=== PATIENT | male | born 1975 | race African-American/Black ===

== ENCOUNTER 2017-02-05 12:40 | Emergency (ER) | payer BC ==
[2017-02-05 12:47] VITALS: BP 133/89
--- NOTE | 2017-02-10 10:58 | ER Document Report ---
ED General - General Chief Complaint: Headache Stated Complaint: POSSIBLE BLOOD PRESSURE ISSUE Time Seen by Provider: 02/05/17 12:55 Mode of Arrival: Ambulatory Information source: Patient TRAVEL OUTSIDE OF THE [place] IN LAST 30 DAYS: No - HPI Patient complains to provider of: BP issue Onset: This morning - pt. states he checked his BP ealrier today and it was "elevated." Has had mild MANNING for the past 2 days - Related Data Allergies/Adverse Reactions: No Known Allergies Allergy (Verified 02/05/17 12:46) Past Medical History - General Information source: Patient - Social History Smoking Status: Never Smoker Cigarette use (# per day): No Chew tobacco use (# tins/day): No Smoking Education Provided: No Family History: Reviewed & Not Pertinent, Hypertension - Past Medical History Cardiac Medical History: Reports: Hx Hypertension Renal/ Medical History: Denies: Hx Peritoneal Dialysis - Immunizations Hx Diphtheria, Pertussis, Tetanus Vaccination: No Review of Systems - Review of Systems Constitutional: No symptoms reported EENT: No symptoms reported Cardiovascular: No symptoms reported Respiratory: No symptoms reported Gastrointestinal: No symptoms reported Musculoskeletal: No symptoms reported -: Yes All other systems reviewed and negative Physical Exam - Vital signs Vitals: Temp Pulse Resp BP Pulse Ox 98.1 F 77 16 133/89 H 98 02/05/17 12:46 02/05/17 12:46 02/05/17 12:46 02/05/17 12:46 02/05/17 12:46 - General General appearance: Appears well In distress: None - HEENT Head: Normocephalic Eyes: Normal Pupils: PERRL Pharynx: Normal Neck: Normal - Respiratory Respiratory status: No respiratory distress Breath sounds: Normal - Cardiovascular Rhythm: Regular Heart sounds: Normal auscultation - Extremities General upper extremity: Normal inspection General lower extremity: Normal inspection Course - Re-evaluation Re-evalutation: 02/10/17 10:57 pt felt better at time of d/c -- BP 133/89- expressed desire to go home - Vital Signs Vital signs: Temp Pulse Resp BP Pulse Ox 98.1 F 77 16 133/89 H 98 02/05/17 12:46 02/05/17 12:46 02/05/17 12:46 02/05/17 12:46 02/05/17 12:46 Discharge - Discharge Clinical Impression: HTN (hypertension), benign Condition: Stable Disposition: HOME, SELF-CARE Additional Instructions: rest, BP recheck in am, return if worse Referrals: FELICE VALLE DO [NO LOCAL MD] - Follow up as needed
== END 2017-02-05 13:10 | disposition home or self-care (01) ==
LOC: ER 12:40
DX: I10 Essential (primary) hypertension (principal); R51 Headache
CPT/HCPCS: 99283

== ENCOUNTER 2017-11-21 10:51 | Emergency (ER) | payer BC ==
--- NOTE | 2017-11-21 11:05 | ER Document Report ---
ED GI/ - General Chief Complaint: Abdominal Pain Stated Complaint: NAUSEA/LEFT FLANK PAIN Time Seen by Provider: 11/21/17 10:57 Mode of Arrival: Ambulatory Information source: Patient Notes: Patient states that he woke up at 7:00 this morning with left flank pain that wrapped around to the left side of his abdomen. Patient does report nausea and vomiting 1 episode. Patient states the pain that caused him to break out in a sweat. Patient presently states that pain is resolved after receiving Toradol and Zofran per EMS. TRAVEL OUTSIDE OF THE [place] IN LAST 30 DAYS: No - HPI Patient complains to provider of: Flank pain, Vomiting Onset: This morning Timing/Duration: Sudden Quality of pain: Sharp Severity at maximum: Severe Pain Level: Denies Location: LLQ, Left flank Associated symptoms: Nausea, Vomiting. 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 denies: Fever, Recent illness EENT: No symptoms reported Cardiovascular: No symptoms reported. denies: Chest pain Respiratory: No symptoms reported. denies: Cough, Short of breath Gastrointestinal: Abdominal pain, Nausea, Vomiting. denies: Diarrhea Genitourinary: Flank pain. denies: Dysuria Male Genitourinary: No symptoms reported Musculoskeletal: Back pain Skin: No symptoms reported Hematologic/Lymphatic: No symptoms reported Neurological/Psychological: No symptoms reported Physical Exam - Vital signs Vitals: Resp 18 11/21/17 11:01 - General General appearance: Appears well, Alert In distress: None - HEENT Head: Normocephalic Eyes: Normal Nasal: Normal Mouth/Lips: Normal Mucous membranes: Normal Neck: Normal, Supple. No: Lymphadenopathy - Respiratory Respiratory status: No respiratory distress Chest status: Nontender Breath sounds: Normal. No: Rales, Rhonchi, Stridor, Wheezing Chest palpation: Normal - Cardiovascular Rhythm: Regular Heart sounds: S1 appreciated, S2 appreciated Murmur: No - Abdominal Inspection: Normal Distension: No distension Bowel sounds: Normal Tenderness: Nontender Organomegaly: No organomegaly - Back Back: Normal, Nontender. No: CVA tenderness - Extremities General upper extremity: Normal inspection, Normal strength General lower extremity: Normal inspection, Normal strength - Neurological Neuro grossly intact: Yes Cognition: Normal Glenn Coma Scale Eye Opening: Spontaneous Glenn Coma Scale Verbal: Oriented [place] Coma Scale Motor: Obeys Commands Glenn Coma Scale Total: 15 - Psychological Associated symptoms: Normal affect, Normal mood - Skin Skin Temperature: Warm Skin Moisture: Dry Skin Color: Normal Course - Re-evaluation Re-evalutation: 11/21/17 12:02 Patient denies any pain symptoms at this time and denies any nausea. Reviewed results of patient's CT scan report with him. Patient advised of lesions noted on the left kidney as well as liver and the need for outpatient follow-up of these findings. 11/21/17 13:[address] Piña regarding patient presentation, reviewed diagnostic test results. Agrees with discharge plan of care at this time and outpatient follow-up with urology. - Vital Signs Vital signs: Temp Pulse Resp BP Pulse Ox 98.0 F 59 L 16 131/82 H 100 11/21/17 13:34 11/21/17 13:34 11/21/17 13:34 11/21/17 13:34 11/21/17 13:34 - Laboratory Result Diagrams: 11/21/17 10:55 11/21/17 10:55 Laboratory results interpreted by me: 11/21/17 11/21/17 11/21/17 10:55 10:55 12:00 WBC 11.2 H Seg Neutrophils % 82.7 H Lymphocytes % 8.7 L Absolute Neutrophils 9.2 H Creatinine 1.35 H Est GFR (Non-Af Amer) 58 L Calcium 10.3 H Urine Protein 100 H Urine Blood LARGE H Urine Urobilinogen 2.0 H Labs- Entire Visit 11/21/17 11/21/17 11/21/17 10:55 10:55 12:00 WBC 11.2 H RBC 5.49 Hgb 15.6 Hct 48.2 MCV 88 MCH 28.5 MCHC 32.4 RDW 13.2 Plt Count 230 Seg Neutrophils % 82.7 H Lymphocytes % 8.7 L Monocytes % 7.6 Eosinophils % 0.6 Basophils % 0.4 Absolute Neutrophils 9.2 H Absolute Lymphocytes 1.0 Absolute Monocytes 0.9 Absolute Eosinophils 0.1 Absolute Basophils 0.0 Sodium 142.1 Potassium 4.5 Chloride 107 Carbon Dioxide 26 Anion Gap 9 BUN 15 Creatinine 1.35 H Est GFR ( Amer) > 60 Est GFR (Non-Af Amer) 58 L Glucose 110 Calcium 10.3 H Total Bilirubin 0.7 Direct Bilirubin 0.4 Neonat Total Bilirubin Not Reportable Neonat Direct Bilirubin Not Reportable Neonat Indirect Bili Not Reportable AST 24 ALT 39 Alkaline Phosphatase 62 Total Protein 7.5 Albumin 4.4 Lipase 45.3 Urine Color YELLOW Urine Appearance SLIGHTLY-CLOUDY Urine pH 7.0 Ur Specific [place] 1.016 Urine Protein 100 H Urine Glucose (UA) NEGATIVE Urine Ketones NEGATIVE Urine Blood LARGE H Urine Nitrite NEGATIVE Urine Bilirubin NEGATIVE Urine Urobilinogen 2.0 H Ur Leukocyte Esterase NEGATIVE Urine WBC (Auto) 2 Urine RBC (Auto) >182 Squamous Epi Cells Auto 1 Urine Mucus (Auto) MOD Urine Ascorbic Acid NEGATIVE - Diagnostic Test Radiology reviewed: Reports reviewed Discharge - Discharge Clinical Impression: Renal cyst, Liver cyst, Ureteral stone Condition: Stable Disposition: HOME, SELF-CARE Additional Instructions: Return immediately for any new or worsening symptoms Followup with your primary care provider, call tomorrow to make a followup appointment Your CAT scan demonstrated that you have a cyst on your left kidney as well as multiple small cysts of the liver area. He can follow-up with a GI specialist as well as urologist for further evaluation. KIDNEY STONE: You are passing or have passed a kidney stone. These stones are usually due to increased calcium or uric acid concentrations in your urine. Stones within the kidney itself are not painful. The pain occurs as the stone leaves the kidney to pass down the long tube, called the ureter, leading to the bladder. If the stone is small, it will usually pass by itself. Most patients can pass the stone at home. You will usually receive medications for pain, nausea or vomiting, and sometimes a medication to assist in passing the kidney stone. However, if the pain is very severe or if vomiting prevents you from taking oral pain medications, you may need to return for further treatment. Drink three or four quarts of fluids per day. You will be given pain medication (if needed) and urine strainers. Strain all your urine to see if the stone passes. If your doctor has asked you to bring the stone in for analysis, return with the stone once it has passed. Return if pain or vomiting become severe, if you develop a high fever, if you are unable to pass your urine, or if other unusual symptoms occur. TORADOL INJECTION: You have been given an injection of ketorolac tromethamine (Toradol). This is an excellent, safe drug for pain control. It also has potent antiinflammatory action. You should have significant pain relief within about one hour. Toradol is not addicting and is non-sedating. It does not interfere with driving or work. Call or return if you develop itching, hives, shortness of breath, or rash. ANTINAUSEA MEDICATION: You have been given a medication to suppress nausea and vomiting. This type of medication can be given as a shot, pill, or suppository. It will usually last for many hours. Pills and shots usually last six to eight hours, suppositories last about 12 hours. For the typical illness, only one or two doses of the medication may be necessary. Mild lightheadedness may occur. This type of medicine can cause drowsiness. Do not drive or operate dangerous machinery while under its influence. Do not mix with alcohol. See your doctor at once if you have muscle spasms or tightness, or uncontrollable motions (particularly of the neck, mouth, or jaw). Persistent vomiting or severe lightheadedness should also be evaluated by the physician. ORAL NARCOTIC MEDICATION: You have been given a prescription for pain control. This medication is a narcotic. It's best taken with food, as nausea can result if taken on an empty stomach. Don't operate machinery or drive within six hours of taking this medication. Do not combine this medicine with alcohol, or with any medication which can cause sedation (such as cold tablets or sleeping pills) unless you get permission from the physician. Narcotics tend to cause constipation. If possible, drink plenty of fluids and eat a diet high in fiber and fruits. Please be aware that prescription narcotics also have the potential for abuse. People become addicted to these medications because of the general sense of wellbeing that they induce. This feeling along with a significant reduction in tension, anxiety, and aggression provides a stimulating seductive quality to these drugs. Once your pain is under control, we encourage you to discard your unused narcotics. FOLLOW-UP CARE: If you have been referred to a physician for follow-up care, call the physician s office for an appointment as you were instructed or within the next two days. If you experience worsening or a significant change in your symptoms, notify the physician immediately or return to the Emergency Department at any time for re-evaluation. Prescriptions: Ondansetron HCl [Zofran 4 mg Tablet] 1 - 2 tab PO Q6 PRN #15 tablet PRN Reason: Oxycodone HCl/Acetaminophen [Percocet 5-325 mg Tablet] 1 tab PO ASDIR PRN #15 tablet PRN Reason: Forms: Smoking Cessation Education, Return to Work Referrals: [facility] [Provider Group] - Follow up as needed [facility] [Provider Group] - Follow up tomorrow
[2017-11-21 11:35] LABS: ABSOLUTE EOSINOPHILS # (AUTO) 0.1 10^3/uL (0.0-0.6); ABSOLUTE MONOCYTES (AUTO) 0.9 10^3/uL (0.1-1.4); ABSOLUTE NEUT (AUTO) 9.2 10^3/uL (1.7-8.2); BASOPHILS % (AUTO) 0.4 % (0-2); EOSINOPHILS % (AUTO) 0.6 % (0-6); HEMATOCRIT 48.2 % (37.9-51.0); HEMOGLOBIN 15.6 g/dL (13.5-17.0); LYMPHOCYTES % (AUTO) 8.7 % (13-45); MEAN CORPUSCULAR HEMOGLOBIN 28.5 pg (27.0-33.4); MEAN CORPUSCULAR HGB CONC 32.4 g/dL (32.0-36.0); MEAN CORPUSCULAR VOLUME 88 fl (80-97); MONOCYTES % (AUTO) 7.6 % (3-13); PLATELET COUNT 230 10^3/uL (150-450); RED BLOOD COUNT 5.49 10^6/uL (4.35-5.55); RED CELL DISTRIBUTION WIDTH 13.2 % (11.5-14.0); SEGMENTED NEUTROPHILS % (AUTO) 82.7 % (42-78); TOTAL CELLS COUNTED % (AUTO) 100 %; WHITE BLOOD COUNT 11.2 10^3/uL (4.0-10.5)
--- NOTE | 2017-11-21 11:50 | RADIOLOGY REPORT (SQ) ---
EXAM DESCRIPTION: CT LTD RENAL STONE PROTOCOL ON COMPLETED DATE/TIME: 11/21/2017 11:33 am REASON FOR STUDY: left flank pain COMPARISON: None. TECHNIQUE: CT scan of the abdomen and pelvis performed without intravenous or oral contrast. Images reviewed with lung, soft tissue, and bone windows. Reconstructed coronal and sagittal MPR images revi ewed. All images stored on PACS. All CT scanners at this facility use dose modulation, iterative reconstruction, and/or weight based d osing when appropriate to reduce radiation dose to as low as reasonably achievable (ALARA). [facility]: Dose Right [facility]: CareDose [facility]: Dose Right [facility]: Teradose 4D [facility]: Smart [place] RADIATION DOSE: CT Rad equipment meets quality standard of care and radiation dose reduction techniq ues were employed. CTDIvol: 6.7 mGy. DLP: 394 mGy-cm.mGy. LIMITATIONS: None. FINDINGS: LOWER CHEST: No significant findings. No nodules or infiltrates. NON-CONTRASTED LIVER, SPLEEN, ADRENALS: Evaluation limited by lack of IV contrast. Several tiny, 2- 3 mm, low-attenuation lesions scattered throughout the liver. No other identified significant masses . PANCREAS: No masses. No peripancreatic inflammatory changes. GALLBLADDER: No identified stones by CT criteria. No inflammatory changes to suggest cholecystitis. RIGHT KIDNEY AND URETER: No suspicious masses. Assessment limited by lack of IV contrast. No signif icant calcifications. No hydronephrosis or hydroureter. LEFT KIDNEY AND URETER: 2.5 cm low-attenuation cortical lesion. Hounsfield units approximately 5. As sessment limited by lack of IV contrast. 2 mm calculus at the left ureteral vesicular junction. M ild hydronephrosis and hydroureter. AORTA AND RETROPERITONEUM: No aneurysm. No retroperitoneal masses or adenopathy. BOWEL AND PERITONEAL CAVITY: No obvious masses or inflammatory changes. No free fluid. APPENDIX: Normal. PELVIS, BLADDER, AND ABDOMINAL WALL:No abnormal masses. No free fluid. Bladder normal. BONES: No significant findings. OTHER: No other significant finding. IMPRESSION: 1. 2 MM CALCULUS AT THE LEFT URETERAL VESICULAR JUNCTION WITH MILD HYDRONEPHROSIS AND HYDROURETER. 2. 2 X 5 CM LOW-ATTENUATION CORTICAL LESION IN THE LEFT KIDNEY, MOST LIKELY A CORTICAL CYST. 3. SEVERAL SMALL, 2- 3 MM, LOW-ATTENUATION LESIONS SCATTERED THROUGHOUT THE LIVER. TOO SMALL TO RUBEN ACTERIZE BUT MAY BE TINY CYSTS. 4. NO OTHER SIGNIFICANT FINDINGS. COMMENT: Quality ID # [id number]: Final reports with documentation of one or more dose reduction techniques (e.g., Automated exposure control, adjustment of the mA and/or kV according to patient size, use of iterative reconstruction technique) TECHNICAL DOCUMENTATION: JOB ID: [id number]- All Rights Reserved Reading location - IP/workstation name: [email or web address]
[2017-11-21 11:55] LABS: ALANINE AMINOTRANSFERASE 39 U/L (21-72); ALBUMIN 4.4 g/dL (3.5-5.0); ALKALINE PHOSPHATASE 62 U/L (38-126); ANION GAP 9 (5-19); ASPARTATE AMINO TRANSFERASE 24 U/L (17-59); BILIRUBIN,DIRECT 0.4 mg/dL (0.0-0.4); BILIRUBIN,TOTAL 0.7 mg/dL (0.2-1.3); BLOOD UREA NITROGEN 15 mg/dL (7-20); CALCIUM 10.3 mg/dL (8.4-10.2); CARBON DIOXIDE 26 mmol/L (22-30); CHLORIDE 107 mmol/L (98-107); GLUCOSE 110 mg/dL (75-110); LIPASE 45.3 U/L (23-300); POTASSIUM 4.5 mmol/L (3.6-5.0); SODIUM 142.1 mmol/L (137-145); TOTAL PROTEIN 7.5 g/dL (6.3-8.2)
[2017-11-21] MEDS ORDERED: NORMAL SALINE 1000 ML 1,000 ML IV ONE (12:02)
[2017-11-21 12:43] LABS: APPEARANCE,URINE SLIGHTLY-CLOUDY; BILIRUBIN,URINE NEGATIVE (NEGATIVE); COLOR,URINE YELLOW; GLUCOSE, URINE NEGATIVE (NEGATIVE); KETONES,URINE NEGATIVE (NEGATIVE); LEUKOCYTE ESTERASE,URINE NEGATIVE (NEGATIVE); NITRITE,URINE NEGATIVE (NEGATIVE); PROTEIN,URINE 100 mg/dL (NEGATIVE); URINE SPECIFIC GRAVITY 1.016
[2017-11-21 13:36] VITALS: BP 131/82
== END 2017-11-21 13:36 | disposition home or self-care (01) ==
LOC: ER 10:51
DX: N28.1 Cyst of kidney, acquired (principal); K76.89 Other specified diseases of liver; N20.1 Calculus of ureter; R10.9 Unspecified abdominal pain; R11.2 Nausea with vomiting, unspecified; R61 Generalized hyperhidrosis; F17.200 Nicotine dependence, unspecified, uncomplicated
CPT/HCPCS: 99284; 96360; 36415; 83690; 85025; 80053; 81001; 76380; J7030

== ENCOUNTER 2019-01-09 10:40 | Emergency (ER) | payer BC ==
[2019-01-09 10:58] VITALS: BP 121/84
--- NOTE | 2019-01-09 11:25 | ER Document Report ---
HPI - HPI Time Seen by Provider: 01/09/19 11:19 Pain Level: 2 Notes: Patient presents to the emergency department requesting a work note to return to work tomorrow. Patient reports he has missed the last 2 days of work as he had shortness of breath 2 days ago. He states his symptoms have resolved. He states that he has hypertension, he states his blood pressure was elevated 2 days ago so he called this morning and got an appointment with his primary care provider. Currently he denies any chest pain, shortness of breath or any other acute complaint. He states he cannot go back to work without a work note. Past Medical History - General Information source: Patient - Social History Smoking Status: Current Every Day Smoker Frequency of alcohol use: None Drug Abuse: None Family History: Reviewed & Not Pertinent, Hypertension - Past Medical History Cardiac Medical History: Reports: Hx Hypertension Renal/ Medical History: Denies: Hx Peritoneal Dialysis Past Surgical History: Reports: Hx Herniorrhaphy - Immunizations Hx Diphtheria, Pertussis, Tetanus Vaccination: No Vertical Provider Document - CONSTITUTIONAL Notes: PHYSICAL EXAMINATION: GENERAL: Well-appearing, well-nourished and in no acute distress. HEAD: Atraumatic, normocephalic. EYES: Pupils equal round extraocular movements intact, conjunctiva are normal. ENT: Nares patent NECK: Normal range of motion LUNGS: No respiratory distress, lung sounds clear and equal bilaterally. Musculoskeletal: Normal range of motion NEUROLOGICAL: Normal speech, normal gait. PSYCH: Normal mood, normal affect. SKIN: Warm, Dry, normal turgor, no rashes or lesions noted. - INFECTION CONTROL TRAVEL OUTSIDE OF THE [place] IN LAST 30 DAYS: No Course - Re-evaluation Re-evalutation: 01/09/19 11:26 Patient appears well, nontoxic, vital signs within normal limits. Patient denies any chest pain or shortness of breath. He reports that he just needs a work note so that he can go back to work tomorrow. Patient will be discharged home in stable condition. - Vital Signs Vital signs: Temp Pulse Resp BP Pulse Ox 98.0 F 70 18 121/84 97 01/09/19 10:56 01/09/19 10:56 01/09/19 10:56 01/09/19 10:56 01/09/19 10:56 Discharge - Discharge Clinical Impression: Encounter for work note Condition: Stable Disposition: HOME, SELF-CARE Additional Instructions: Please keep the appointment you have scheduled with your primary care provider to establish treatment for your hypertension. Your blood pressure was normal today here in the emergency department. You may return to work tomorrow. A work note has been provided. Please return to the emergency department with any new or worsening symptoms to include difficulty breathing, shortness of breath or chest pain. Forms: Return to Work
== END 2019-01-09 11:28 | disposition home or self-care (01) ==
LOC: ER 10:40
DX: R06.02 Shortness of breath (principal); F17.200 Nicotine dependence, unspecified, uncomplicated; I10 Essential (primary) hypertension
CPT/HCPCS: 99283